=== PATIENT | female | born 1960 | race Caucasian/White ===

== ENCOUNTER → 2023-11-06 12:31 | Outpatient (REF) | payer BC, SELFPAY | LOC: RAD 12:31 | PROVIDERS: ATTENDING PHYSICIAN Family Medicine | DX: Z78.0 Asymptomatic menopausal state (principal) | CPT/HCPCS: 77080 ==

== ENCOUNTER → 2023-11-20 13:34 | Outpatient (REF) | payer BC, SELFPAY | LOC: HWRAD 13:34 | PROVIDERS: ATTENDING PHYSICIAN Urology; FAMILY PHYSICIAN Family Medicine | DX: N39.0 Urinary tract infection, site not specified (principal) | CPT/HCPCS: 76770 ==

== ENCOUNTER → 2024-02-05 10:12 | Outpatient (REF) | payer BC, SELFPAY | LOC: RAD 10:12 | PROVIDERS: ATTENDING PHYSICIAN Urology; FAMILY PHYSICIAN Family Medicine | DX: Q62.8 Other congenital malformations of ureter (principal) | CPT/HCPCS: 78708; A9539 ==

== ENCOUNTER → 2024-11-22 12:38 | Outpatient (REF) | payer BC, SELFPAY | LOC: PAVMRI 12:38 | PROVIDERS: ATTENDING PHYSICIAN Anesthesiology; FAMILY PHYSICIAN Family Medicine | DX: M54.16 Radiculopathy, lumbar region (principal) | CPT/HCPCS: 72148 ==

== ENCOUNTER → 2025-04-27 12:46 | Outpatient (REF) | payer BC, SELFPAY | LOC: HWRAD 12:46 | PROVIDERS: ATTENDING PHYSICIAN Urology; FAMILY PHYSICIAN Family Medicine | DX: N28.1 Cyst of kidney, acquired (principal); N39.0 Urinary tract infection, site not specified | CPT/HCPCS: 76770 ==